=== PATIENT | female | born 1975 | race Native Hawaiian/Other Pacific Islander ===

== ENCOUNTER 2019-02-23 01:11 | Emergency (ER) | payer OTHER ==
[~2019-02-23] VITALS: Ht 160 cm; Wt 63.5 kg
[2019-02-23 01:11] VITALS: BP 102/48; TEMP 98.6
[2019-02-23] MEDS ORDERED: SUBOXONE1 MI2 SL (02:36)
[2019-02-23 02:54] LABS: PLATELET COUNT 295 K/uL (152-353); POTASSIUM 3.9 mmol/L (3.6-5.2)
== END 2019-02-23 05:05 | disposition home or self-care (01) ==
LOC: ED 01:11
PROVIDERS: Family Medicine
DX: F11.20 Opioid dependence, uncomplicated (principal); F19.10 Other psychoactive substance abuse, uncomplicated
CPT/HCPCS: 80053; 85027; 99285